=== PATIENT | female | born 1990 | race Caucasian/White ===

== ENCOUNTER 2024-06-02 11:19 | Emergency (ER) | payer OTHER, BC ==
[2024-06-02 11:29] VITALS: BP 149/69; PULSE 85; RESP 20; TEMP 98.4; BMI 33.3
[2024-06-02] MEDS ORDERED: ACETAMINOPHEN INJECTION 100 ML IVPB ONE (12:14)
[2024-06-02] MEDS ORDERED: METOCLOPRAMIDE HCL 10 MG TABLET (FP) PO ONE (12:14)
[2024-06-02] MEDS ORDERED: METOCLOPRAMIDE HCL INJECTION 10 MG/2 ML VIAL ONE (12:15)
[2024-06-02] MEDS: ACETAMINOPHEN 1000 MG/100 ML BAG IVPB ONE (12:36)
[2024-06-02] MEDS: LACTATED RINGERS SOLUTION 1,000 ML/1,000 ML INFUS.BAG IV SCH (12:37)
[2024-06-02] MEDS: METOCLOPRAMIDE HCL INJECTION 10 MG/2 ML VIAL IVPB ONE (12:37)
[2024-06-02 13:07] LABS: MCH 29.6 pg (25.7-33.7); MCHC 32.7 g/dl (32.0-36.0); MEAN CELL VOLUME 90.6 fl (80-96); MEAN PLT VOLUME 8.6 fl (7.5-11.1); PLATELET COUNT 291.1 10^3/uL (134-434); RBC 4.75 10^6/uL (3.60-5.2); WHITE BLOOD COUNT 6.1 10^3/uL (4.0-10.8)
[2024-06-02 13:08] LABS: ALBUMIN 4.1 g/dl (3.4-5.0); BILIRUBIN,TOTAL 0.6 mg/dl (0.2-1); CALCIUM 8.8 mg/dl (8.5-10.1); CREATININE 0.7 mg/dl (0.6-1.3); POTASSIUM 3.9 mmol/L (3.5-5.1); TOT PROT 6.5 g/dl (6.4-8.2)
[2024-06-02 13:19] LABS: PLATELET ESTIMATE ADEQUATE
== END 2024-06-02 14:09 | disposition home or self-care (01) ==
LOC: FER 11:19
PROC: 3E033NZ Introduction of Analgesics, Hypnotics, Sedatives into Peripheral Vein, Percutaneous Approach (ICD-10-PCS; principal; 2024-06-02)
PROC: 3E033GC Introduction of Other Therapeutic Substance into Peripheral Vein, Percutaneous Approach (ICD-10-PCS; 2024-06-02)
DX: G44.209 Tension-type headache, unspecified, not intractable (principal); R11.0 Nausea; Z20.822 Contact with and (suspected) exposure to COVID-19
CPT/HCPCS: 0241U-QW; 36415; 80053; 84703; 85027; 99284-25; J0131